=== PATIENT | female | born 1955 | race Caucasian/White ===

== ENCOUNTER 2016-08-15 14:00 | Inpatient (IN) | payer BC ==
[~2016-08-15] VITALS: Ht 180.3 cm; Wt 100.0 kg
--- NOTE | ~2016-08-15 | OR ---
PATIENT'S NAME: BARBARA, [facility] AGE: 60 Y [address] ROOM: [place] [address] LOCATION: [facility] ADMIT DATE: 08/29/2016 OR/Procedure Report DISCHARGE DATE: FAMILY PHYSICIAN: Renaldo Mccullough MD ATTENDING PHYSICIAN: VALDEMAR LUTZ SURGEON: Valdemar Lutz MD SOCIAL WORK ASSISTANT: Akira Mccullough PA-C and Thierno Martínez CST/QUALITY CONTROL SYSTEMS MANAGER. DATE OF PROCEDURE: 08/29/2016 PRE-OP DIAGNOSIS: Degenerative joint disease left knee. POST-OP DIAGNOSIS: Degenerative joint disease left knee. OPERATION: Left total knee arthroplasty with computer navigation. ANESTHESIA: Spinal anesthesia plus adductor canal block plus periarticular local anesthesia (ropivacaine with epinephrine and Toradol). ESTIMATED BLOOD LOSS: Less than 10 mL. DRAIN: None. SPECIMEN: None. COMPLICATIONS: None. IMPLANT SYSTEM: Lauryn Triathlon. Size 5 left posterior stabilized femoral component. Size 4 Reading Modular tibial baseplate. 13 mm posterior stabilized size 4 X3 tibial polyethylene insert. 32 mm oval X3 patella component (triple pegged). INDICATIONS FOR SURGERY: Ken Jimenez is a 60-year-old female who presents with advanced left knee degenerative joint disease and associated severely compromised activities of daily living. The patient has decided to proceed with knee replacement after having been thoroughly counseled regarding the associated risks, benefits, and limitations. We have specifically reviewed the risks and implications of infection, deep venous thrombosis, pulmonary embolism, mortality, neurovascular complications, blood transfusion (and associated potential for disease transmission or transfusion reaction), stiffness, instability, mechanical deterioration of the components (due to wear and or loosening), and the potential need for revision. We have also emphasized the importance of active involvement and compliance with post- operative physical therapy as a means of optimizing range of motion and PATIENT'S NAME: [facility] AGE: 60 Y [address] ROOM: [place] [address] LOCATION: [facility] ADMIT DATE: 08/29/2016 OR/Procedure Report DISCHARGE DATE: FAMILY PHYSICIAN: Renaldo Mccullough MD ATTENDING PHYSICIAN: VALDEMAR LUTZ functional recovery. Informed consent has been granted. DESCRIPTION OF PROCEDURE: The patient was positioned supine after administration of anesthesia and prophylactic antibiotics. A well-padded pneumatic tourniquet was placed around the left proximal thigh, and the left lower extremity was prepped and draped with vigilant sterile technique. The patient's name as well as the intended operative side and procedure were confirmed with a verbal time-out involving myself, the circulating nurse, the scrub nurse, and the anesthesiologist. Examination under anesthesia demonstrated no active skin lesions or masses. There was a moderate effusion. There was no erythema. There was no abnormal warmth. Range of motion under anesthesia was from full extension to 135 degrees of flexion. There was no ligamentous insufficiency. The left lower extremity was elevated and exsanguinated with an Esmarch wrap, and the pneumatic tourniquet was inflated to 300 mmHg. The knee was approached through a longitudinal midline incision. A medial parapatellar arthrotomy was performed and the patella was everted. Examination of the joint space demonstrated a large amount of benign-appearing translucent synovial fluid. There was generalized, mildly proliferative synovitis. There were no loose bodies. The cruciate ligaments were intact. There was a small popliteal cyst, which I decompressed into the joint by dilating its point of communication. There were small osteophytes at the intercondylar notch. There was a 1 cm diameter region of full-thickness articular cartilage loss at the superolateral margin of the patella, and there were moderate grade 3 degenerative changes throughout the remainder of the lateral half of the patella. There were small osteophytes at the superior and inferomedial margins of the patella. There was a small osteophyte at the lateral margin of the femoral trochlea. There were moderate-sized osteophytes at the medial femoral condyle and medial tibial plateau. There was a small osteophyte at the lateral femoral condyle. There was full-thickness loss of articular cartilage involving 50% of the medial femoral condyle and the medial 50% of the medial tibial plateau. There were grade 2 degenerative changes at the lateral femoral condyle and the lateral tibial plateau. There was a very small osteophyte at the lateral tibial plateau. The lateral meniscus was intact. There was complex degenerative tearing at the posterior half of the medial meniscus. Remnants of the menisci and cruciate ligaments were excised. The [employer] navigation femoral tracker was pinned in place at the distal aspect of the femoral trochlea. Absence of motion between the femur and the tracking device was confirmed manually and visually. Femoral osseous landmarks were obtained in order to calibrate the computer navigation system. Landmarks PATIENT'S NAME: KEN JIMENEZ [facility] AGE: 60 Y [address] ROOM: [id number] [place], [place] [address] LOCATION: [facility] ADMIT DATE: 08/29/2016 OR/Procedure Report DISCHARGE DATE: FAMILY PHYSICIAN: Renaldo Mccullough MD ATTENDING PHYSICIAN: VALDEMAR LUTZ included the center of rotation of the ipsilateral hip, the center-point of the distal femur, the femoral AP axis, 57 points on the medial femoral condyle articular surface, and 57 points on the lateral femoral condyle articular surface. The Simpleshow computer navigation system was subsequently utilized to position the distal femoral resection block such that the distal femoral resection was performed perfectly perpendicular to the femoral mechanical axis. The distal femoral resection was performed with a Media Radar oscillating saw. The Simpleshow computer navigation tibial tracker was pinned in place at the anterior aspect of the tibial plateau. Absence of motion between the tibia and the tracking device was confirmed manually and visually. Tibial osseous landmarks were obtained in order to calibrate the computer navigation system. Landmarks included the center-point of the tibial plateau, the AP tibial axis, 57 points on the medial tibial plateau articular surface, 57 points on the lateral tibial plateau articular surface, the medial malleolus, and the lateral malleolus. The Simpleshow computer navigation system was subsequently utilized to position the proximal tibial resection block such that the proximal tibial resection was performed perfectly perpendicular to the tibial mechanical axis. The proximal tibial resection was performed with a Confovis Precision oscillating saw. Perpendicularity of the tibial resection with respect to the tibial shaft axis was reconfirmed by inserting a spacer- block attached to an extramedullary guide yessenia. External rotation of the anterior and posterior femoral resections was set parallel to the epicondylar axis and carefully adjusted in order to create a rectangular flexion gap. The box resection was performed with a reciprocating saw. Anterior and posterior chamfer resections were performed with the oscillating saw. Posterior condyle osteophytes were excised with an osteotome. All other osteophytes were excised with a rongeur. Resection of all remnants of the menisci was reconfirmed. Flexion and extension gaps were confirmed to be symmetric and well balanced with a spacer-block technique. The patella resection was performed with an oscillating saw such that the composite thickness of the reconstructed patella was equivalent to the thickness of the [place] patella. Patella tracking was confirmed to be optimal. A limited lateral retinacular release was required in order to optimize patella tracking. All trial components were removed and all prepared osseous surfaces were thoroughly irrigated with pulsatile saline lavage and dried prior to cementing all three components in a single stage using Lauryn Simplex cement containing pre-mixed tobramycin. All extruded excess cement was removed. The entire joint space was thoroughly inspected and thoroughly irrigated with bacteriostatic pulsatile saline lavage to assure that there was no residual PATIENT'S NAME: SALINA JIMENEZH [facility] AGE: 60 Y [address] ROOM: [id number] [place] [id number] LOCATION: [facility] ADMIT DATE: 08/29/2016 OR/Procedure Report DISCHARGE DATE: FAMILY PHYSICIAN: Renaldo Mccullough MD ATTENDING PHYSICIAN: VALDEMAR LUTZ debris of any sort. Final range of motion was from full extension (with no passive hyperextension) to 130 degrees of flexion. Patella tracking was reconfirmed to be optimal. There was very good anteroposterior stability at 90 degrees of flexion. There was less than 1 mm of medial lift-off to valgus stress in full extension. There was less than 1 mm of lateral lift-off to varus stress in full extension. The arthrotomy was closed with multiple simple and [id number] interrupted #1 Vicryl. Subcutaneous tissues were thoroughly re-irrigated with bacteriostatic pulsatile saline lavage. Subcutaneous tissues were re- approximated with simple buried interrupted #0 Vicryl sutures. The skin was closed with simple buried interrupted 2-0 Vicryl sutures followed by surgical stephany. The dressing consisted of Xeroform gauze, 4x4 gauze, ABD pads and two 6-inch Bladimir Wraps. There were no intra-operative complications. It should be noted that the physician's embroidery assistant played an active, integral role throughout this entire operation. By providing expert retraction, they greatly facilitated and expedited safe and effective exposure of the distal femur, proximal tibia and patella for preparation and implantation of the components. They were also actively involved in the patient's positioning, prepping and draping, as well as wound closure. MD Moises MATOS /[id number] d: 08/29/16 1006 t: 09/15/16 0749, OPERATIVE SUMMARY
--- NOTE | ~2016-08-15 | DS ---
PATIENT'S NAME: BARBARA [facility] AGE: 60 Y [address] ROOM: [address] [address] LOCATION: [facility] ADMIT DATE: 08/29/2016 Discharge Summary DISCHARGE DATE: 08/31/2016 FAMILY PHYSICIAN: Renaldo Mccullough MD ATTENDING PHYSICIAN: Valdemar Allan PRIMARY DIAGNOSIS: Degenerative joint disease of the left knee. SECONDARY DIAGNOSIS: 1. Hypertension. 2. Hyperlipidemia. PROCEDURE PERFORMED: Left total knee arthroplasty with computer navigation. HISTORY: The patient is a 60-year-old female, who presents with advanced left knee degenerative joint disease and associated severely compromised activities of daily living. The patient has decided to proceed with total knee arthroplasty after having been thoroughly counseled regarding the risks, benefits, limitations, and alternatives. Please refer to the outpatient clinic notes and admission history and physical for this patient. HOSPITAL COURSE: The patient underwent a left total knee arthroplasty on 08/29/2016 without complications. Spinal anesthesia plus adductor canal block with periarticular local anesthesia was utilized. The patient received 24 hours of perioperative prophylactic antibiotics and remained hemodynamically stable, neurovascularly intact throughout the entire hospital course. The postoperative prophylactic deep venous thrombosis prophylaxis consisted of Xarelto 10 mg, early mobilization and pneumatic compression devices. Daily physical therapy for gait training, transfer training range of motion and quadriceps isometric exercises were received. The patient progressed well in physical therapy. On the date of discharge, 08/31/2016, the incision at the knee was healing well and showed no signs of infection. DISPOSITION: Home. DISCHARGE ACTIVITY: The patient is to bear weight as tolerated with range of motion and quadriceps isometric exercises as instructed. The operative extremity is to be elevated at least 90% of the day. There is to be sterile 4x4 gauze dressings to the incision daily. Dr. Allan is to be notified immediately if there is any increased pain, fevers, chills, erythema, or drainage. DISCHARGE MEDICATIONS: Include: 1. Xarelto 10 mg, take 1 tablet p.o. daily for DVT prevention. 2. Celebrex 200 mg, take 1 tablet p.o. b.i.d. p.r.n. pain. PATIENT'S NAME: [facility] AGE: 60 Y [address] ROOM: [id number] [place], [place] [address] LOCATION: [facility] ADMIT DATE: 08/29/2016 Discharge Summary DISCHARGE DATE: 08/31/2016 FAMILY PHYSICIAN: Renaldo Mccullough MD ATTENDING PHYSICIAN: Valdemar Allan 3. Valium 5 mg, take 1/2 tablet to 1 tablet every 6 hours needed for muscle spasms. 4. Nucynta 75 mg take 1 to 2 tablets p.o. every 4 hours as needed for pain. FOLLOWUP: Follow up appointment is to be with Dr. Allan on 09/05/2016 for initial postoperative evaluation with x-rays at that time and for staple removal. ISRAEL FUNEZ FOR VALDEMAR ALLAN MD TLB/modl /[id number] d: 09/11/16 1418 t: 09/13/16 1054, DISCHARGE SUMMARY
[~2016-08-15 14:00] MED LIST: ASPIRIN EC81 MG PO; BYSTOLIC5 MG PO; CELEXA40 MG PO; CRESTOR20 MG PO; HYDRODIURIL25 MG PO; NORVASC10 MG PO; TRILIPIX135 MG PO; ZETIA10 MG PO
[2016-08-29 11:32] LABS: HEMATOCRIT 37.3 % (33.0-46.0); HEMOGLOBIN 12.6 g/dL (10.0-15.0)
[2016-08-29 11:49] LABS: CPK 57 IU/L (21-215)
[2016-08-29 11:50] LABS: ALBUMIN 2.9 gm/dL (3.5-5.0); ANION GAP 11.6 (10.0-19.0); CALCIUM 8.1 mg/dL (8.5-10.5); CREATININE 0.9 mg/dL (0.5-1.1); POTASSIUM 3.6 mMol/L (3.7-5.1); TOTAL BILIRUBIN 0.3 mg/dL (0.0-1.5); TOTAL PROTEIN 5.8 g/dL (6.0-8.4)
--- NOTE | 2016-08-29 17:08 | NUR ---
Introduced self/role to patient and daughter. Patient attended preop class. Reports she has daughter and who will be able to help upon discharge. Patient lives in [place] in 2 story home with spouse. Has 2 steps to get in home. Has walker, cane, crutches, bath seat, elevated toilet seat and wall mounted grab bar. Plans to do therapy at [facility]. Will follow and assist as needs identified. Reviewed and encouraged use of IS. Has foot pumps in place.
--- NOTE | 2016-08-29 17:38 | NUR ---
Significant Event: PATIENT UP TO FLOOR FROM PACU AT 1015. DRESSING C/D/I TO L) KNEE, CSM ASSESSMENTS WNL. 1015 BP 134/73, 68, 97% ON 2L/NC. 1028 PATIENT C/O MID STERNAL DISCOMFORT, DESCRIBED INDIGESTION, HR 32 BP 55/36, CHARGE NUSRE INFORMED, PATIENT PLACED IN TRANDELENBURG POSITION, 1030 BP 56/36, 37. DR. ANAYA NOTIFIED WITH NEW ORDERS FOR EKG, 1 LITER BOLUS OF NS, AND LABS. 1032 BP 70/45, 40, 1034 BP 96/61, 63, 1040 BP 107/67, 63. PATIENT C/O BACK PAIN, BLADDER SCAN FOR 899ML, PER DR. ANAYA ORDER MARR CATHETER INSERTED. ZOFRAN GIVEN AT 1120 WITH RELIEF. 1559 PATIENT HAD 3400ML OUT OF MARR. UP TO CHAIR WITH PT ASSISTANCE. RATED L) THIGH PAIN 2 ON PAIN SCALE, NUCYNTA GIVEN AT 1512 WITH RELIEF. EZ WRAP, KNEE HIGH TEDS AND FOOT PUMPS ON. DAUGHTER AT BEDSIDE, VERY SUPPORTIVE. Follow up:
[2016-08-29 18:52] LABS: CPK 78 IU/L (21-215)
--- NOTE | 2016-08-30 03:29 | NUR ---
Pt A&Ox4. VSS, placed on 2L at HS to keep sats >90, pt states that she has a hx of "borderline" sleep apnea. Sats >90 on RA while awake. Telemetry monitoring, HRs in 50s-60s, SBPs 110s-130s. Denies cardiac symptoms throughout shift. Pain well controlled with scheduled tylenol, PRN nucynta. Pleasant and cooperative.
--- NOTE | 2016-08-30 09:50 | NUR ---
Introduced self/role to patient and her daughter. Patient lives in [place] with her , anticipates going home tomorrow. She denied any barriers to going home or at home. Will have help, daughter getting antislip strips to but in the bottom of the tub. Added my name to her marker board, will continue to follow.
--- NOTE | 2016-08-30 18:28 | NUR ---
Significant Event: patient alert and oriented x3. mariya dressing to l) knee c/d/i. csm assessments wnl to l) lower extremity. ambulates to bathroom and up to chair with sba, use of walker/gait belt. ambulated in tabor with Physical therapy assist. jolley removed at 1110, with 750ml out, voiding without difficulty. pain well controlled with nucynta 1 tab and tylenol extra strength 2 tabs given last at 1710. ez wrap, knee high teds and foot pumps on. daughter at bedside, very supportive. telemetry stopped per order. Follow up:
--- NOTE | 2016-08-31 03:06 | NUR ---
Significant Event: PATIENT ALERT AND ORIENTED X 3. VSS. TAKING PO AND VOIDING WITHOUT DIFFICULTY. UP WITH SBA, GB, AND WALKER. - GAIT STEADY. BIANCA WRAP DRESSING TO LEFT KNEE C/D/I. ICE TO LEFT KNEE AND LEFT UPPER THIGH ALL SHIFT. L) LEG ELEVATED. PAIN WELL CONTROLLED WITH NUCYNTA LAST AT 0500. SL PATENT TO LEFT WRIST. PLANS D/C TO HOME TODAY. PLEASANT AND COOPERTIVE WITH CARES. Follow up:
[2016-08-31] MEDS ORDERED: TYLENOL EXTRA500 MG PO (11:03)
[2016-08-31] MEDS ORDERED: COLACE100 MG PO (11:05)
[2016-08-31] MEDS ORDERED: MIRALAX17 GM PO (11:08)
[2016-08-31] MEDS ORDERED: XARELTO10 MG PO (11:09)
[2016-08-31] MEDS ORDERED: NUCYNTA75 MG PO (11:11)
[2016-08-31] MEDS ORDERED: CELEBREX200 MG PO (11:13)
[2016-08-31] MEDS ORDERED: VALIUM5 MG PO (11:16)
== END 2016-08-31 15:39 | disposition disaster alternative care site (69) | DRG 470 ==
LOC: G3N 08-29 05:21
PROVIDERS: Family Medicine; ADMIT Orthopaedic Surgery
PROC: 0SRD0J9 Replacement of Left Knee Joint with Synthetic Substitute, Cemented, Open Approach (ICD-10-PCS; principal; 2016-08-29)
PROC: XR2H021 Monitoring of Left Knee Joint using Intraoperative Knee Replacement Sensor, Open Approach, New Technology Group 1 (ICD-10-PCS; principal; 2016-08-29)
DX: M17.12 Unilateral primary osteoarthritis, left knee (principal); I95.9 Hypotension, unspecified; E78.5 Hyperlipidemia, unspecified; I10 Essential (primary) hypertension; R00.1 Bradycardia, unspecified; R33.9 Retention of urine, unspecified; Z79.82 Long term (current) use of aspirin; E66.3 Overweight; Z68.32 Body mass index [BMI] 32.0-32.9, adult
CPT/HCPCS: C1713; C1776; J0690; J1100; J1885; J2001; J2250; J2405; J2795; J7030; J7120

== ENCOUNTER → 2016-08-17 | Outpatient (CLI) | payer BC ==
[~2016-08-17] MED LIST changes: +CELEBREX200 MG PO; +COLACE100 MG PO; +MIRALAX17 GM PO; +NUCYNTA75 MG PO; +TYLENOL EXTRA500 MG PO; +VALIUM5 MG PO; +XARELTO10 MG PO
== END | disposition disaster alternative care site (69) ==
LOC: GNJRC 10:10
DX: Z01.812 Encounter for preprocedural laboratory examination (principal); M17.12 Unilateral primary osteoarthritis, left knee